=== PATIENT | male | born 1970 | race Asian ===

== ENCOUNTER 2016-07-01 05:28 | Emergency (ER) | payer MEDICAID, OTHER ==
[~2016-07-01] VITALS: Ht 180.3 cm; Wt 83.9 kg
[2016-07-01] MEDS ORDERED: cloNIDine HCL 0.1 MG TAB PO ONE (06:45)
[2016-07-01] MEDS ORDERED: HYDROcodone-ACET 10/325MG TAB PO ONE (06:45)
[2016-07-01 06:49] VITALS: BP 168/118
[2016-07-01] MEDS ORDERED: METOPROLOL TARTRATE 25 MG TAB ONE (07:30)
[2016-07-01] MEDS ORDERED: METOPROLOL TARTRATE 50 MG TAB PO ONE (07:30)
== END 2016-07-01 08:23 | disposition home or self-care (01) ==
LOC: ER 05:34
DX: S92.911A Unspecified fracture of right toe(s), initial encounter for closed fracture (principal); I10 Essential (primary) hypertension; W22.8XXA Striking against or struck by other objects, initial encounter; Y93.89 Activity, other specified; Y99.8 Other external cause status; Y92.89 Other specified places as the place of occurrence of the external cause
CPT/HCPCS: 73660; 99284; L3260

== ENCOUNTER 2016-07-01 19:41 | Emergency (ER) | payer MEDICAID ==
[~2016-07-01] VITALS: Ht 175.3 cm; Wt 83.9 kg
[2016-07-01 20:44] LABS: Basophils # (auto) 0 uL; Basophils % (auto) 0.3 % (0.0-2.0); Eosinophils # (auto) 0.1 uL; Eosinophils % (auto) 0.9 % (0.0-7.0); Hematocrit 45.6 % (41.0-53.0); Hemoglobin 15.1 g/dL (13.5-17.5); Lymphocytes # (auto) 1.6 uL; Lymphocytes % (auto) 20.9 % (10.0-50.0); Mean Corpuscular Hemoglobin 31.2 pg (28.0-32.0); Mean Corpuscular Volume 94.4 fL (80.0-100.0); Mean Platelet Volume 7.9 fL (7.4-10.4); Monocytes # (auto) 0.8 uL; Monocytes % (auto) 10.5 % (0.0-12.0); Neutrophils % (auto) 67.4 % (37.0-80.0); Platelet Count (auto) 296 10^3/uL (140-450); White Blood Cell 7.5 10^3/uL (4.4-10.8)
[2016-07-01 21:04] LABS: BUN/Creatinine Ratio 10.4; Potassium 4.4 mmol/L (3.5-5.1)
[2016-07-01 21:08] LABS: Bilirubin, Total 0.4 mg/dL (0.2-1.0)
[2016-07-02 00:15] VITALS: BP 129/74
== END 2016-07-02 04:35 | disposition left against medical advice (07) ==
LOC: ER 19:41
DX: R42 Dizziness and giddiness (principal); Z53.21 Procedure and treatment not carried out due to patient leaving prior to being seen by health care provider
CPT/HCPCS: 36415; 80053; 85025; 93005